=== PATIENT | female | born 1955 | race Caucasian/White ===

== ENCOUNTER → 2017-09-24 | Outpatient (CLI) | payer BC ==
[2017-09-24 14:01] LABS: Basophils # (auto) 0.1 uL; Eosinophils # (auto) 0.1 uL; Eosinophils % (auto) 1.8 % (0.0-7.0); Hematocrit 48.9 % (36.0-46.0); Hemoglobin 16.3 g/dL (12.2-16.2); Lymphocytes % (auto) 31.3 % (10.0-50.0); Mean Corpuscular Hemoglobin 29.1 pg (28.0-32.0); Mean Corpuscular Hgb Conc. 33.4 g/dL (32.0-36.0); Mean Corpuscular Volume 86.9 fL (80.0-100.0); Monocytes # (auto) 0.4 uL; Monocytes % (auto) 6.5 % (0.0-12.0); Neutrophils # (auto) 3.8 uL; Neutrophils % (auto) 59.4 % (37.0-80.0); Nucleated Red Blood Cells % 0.4 %; Platelet Count (auto) 198 10^3/uL (140-450); Red Blood Cells 5.62 10^6/uL (4.0-5.20); White Blood Cell 6.4 10^3/uL (4.4-10.8)
[2017-09-24 14:03] LABS: Urine Bacteria FEW /hpf (None Seen); Urine Blood 1+ /uL (Negative); Urine Specific Gravity 1.014 (1.001-1.035); Urine WBC 18 /hpf (0 - 5)
== END | disposition home or self-care (01) ==
LOC: LAB 13:34
PROVIDERS: ATTEND Internal Medicine
DX: M94.0 Chondrocostal junction syndrome [Tietze] (principal); R03.0 Elevated blood-pressure reading, without diagnosis of hypertension
CPT/HCPCS: 36415; 81001; 82043; 84439; 84443; 84484; 85025; 85652; 86038

== ENCOUNTER → 2023-03-29 | Outpatient (CLI) | payer BC | END | disposition home or self-care (01) | LOC: XYW 09:26 | PROVIDERS: ATTEND Student in an Organized Health Care Education/Training Program | DX: I70.0 Atherosclerosis of aorta (principal) | CPT/HCPCS: 93306 ==

== ENCOUNTER → 2023-05-26 | Outpatient (CLI) | payer BC ==
[~2023-05-26] VITALS: Ht 167.6 cm; Wt 72.6 kg
[~2023-05-26] MED LIST: ADENOSINE 61 MG in GIVE UN-DILUTED 0 ML IV ONE
== END | disposition home or self-care (01) ==
LOC: XYW 08:09
PROVIDERS: ATTEND Internal Medicine
DX: I70.0 Atherosclerosis of aorta (principal); R07.9 Chest pain, unspecified; I10 Essential (primary) hypertension; Z80.0 Family history of malignant neoplasm of digestive organs
CPT/HCPCS: 78452; 93017; A9500; J0153